=== PATIENT | male | born 1970 | race Caucasian/White ===

== ENCOUNTER → 2023-07-20 12:45 | Outpatient (BNVA) | payer OTHER, SELFPAY | PROVIDERS: Visit Provider Physician Assistant Medical | DX: M77.11 Lateral epicondylitis, right elbow (principal) | CPT/HCPCS: 99202 ==

== ENCOUNTER → 2023-07-27 12:54 | Outpatient (BNVA) | payer OTHER, SELFPAY | PROVIDERS: Visit Provider Physician Assistant Medical | DX: M77.11 Lateral epicondylitis, right elbow (principal) | CPT/HCPCS: 99213 ==

== ENCOUNTER → 2023-08-10 12:58 | Outpatient (BNVA) | payer OTHER, SELFPAY | PROVIDERS: Visit Provider Physician Assistant Medical | DX: M77.11 Lateral epicondylitis, right elbow (principal) | CPT/HCPCS: 99213 ==

== ENCOUNTER 2023-08-31 10:25 | Outpatient (AMB) | payer OTHER, SELFPAY ==
--- NOTE | 2023-08-31 10:31 | MHC.OFFVIS ---
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 Patient reports while at work, he was using a wrench when he felt a sharp pain in his elbow and has had soreness ever since. He was seen at work connection and was referred to orthopedics. Currently he has pain and difficulty with lifting objects. Painful ROM. Denies numbness or tingling. 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 He was seen at work connection where he was referred to our office. He currently states he has pain and constant soreness in his elbow which is aggravated with lifting objects, pulling in socks or trash cans and with ROM. He denies any numbness or tingling. He had undergone physical therapy about 10 years ago for a similar injury. 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 Review of Systems Const All systems reviewed & are unremarkable except as noted in HPI and below Physical Exam Vital Signs: BMI result Body Mass Index 25.8 Const General: cooperative, healthy appearing, comfortable, no acute distress, well developed and alert Orientation/consciousness: patient oriented x3 HEENT Head: Yes normal to inspection, Yes normocephalic and Yes atraumatic Eyes General: appearance normal, both eyes and all related structures Resp Effort & Inspection: normal respiratory effort and able to speak in complete sentences Cardio Rate: regular rate Peripheral pulses: Peripheral pulses 2+ throughout GI Palpation (GI): Soft to palpation Skin Lesions: no lesions Rashes: no rashes Neuro General: patient oriented x3 Extrem Other: Right elbow: Skin intact. No erythema or swelling. ROM full without pain. Tenderness over the lateral epicondyle and pain with resisted wrist extension. NVI. Results Reviewed Results Reviewed: xrays of the right elbow obtained on 07/27/23 ordered by the Work connection are negative for acute abnormalities. Assessment & Plan Assessment & Plan (1) Lateral epicondylitis, right elbow: Code(s): M77.11 - Lateral epicondylitis, right elbow Plan We discussed options which include PT, NSAIDs and injections. The patient will defer on the injection today and proceed with PT and NSAIDs. He was given a work note to return on 09/01/22. He will continue light duty restrictions with no lifting of the RUE. He will see me back in 6-8 weeks, sooner if needed. Orders: Orders OT Evaluation and Treatment Today M77.11 - Lateral epicondylitis, right elbow Patient Instructions: Scribed for Laurie Roberto PA-C, by Aneesh Mao medical biller, on 08/31/2023 at 10:30 AM EST. I, Laurie Roberto PA-C, have personally reviewed and agree with the information entered by the scribe. Coding Level of Care Code New Pt Level 3 (57500) Diagnoses Lateral epicondylitis, right elbow M77.11
[2023-08-31 10:33] VITALS: BMI 25.8
== END 2023-08-31 11:12 | disposition home or self-care (01) ==
LOC: HO.HOS 10:25
PROVIDERS: Visit Provider Physician Assistant
DX: M77.11 Lateral epicondylitis, right elbow (principal); Z04.2 Encounter for examination and observation following work accident
CPT/HCPCS: 99203

== ENCOUNTER → 2023-08-31 10:25 | Outpatient (BNVA) | payer OTHER, SELFPAY | PROVIDERS: Visit Provider Physician Assistant | DX: M77.11 Lateral epicondylitis, right elbow (principal) | CPT/HCPCS: 99202 ==

== ENCOUNTER 2023-10-19 13:55 | Outpatient (AMB) | payer OTHER, SELFPAY ==
[2023-10-19 14:06] VITALS: BMI 25.8
--- NOTE | 2023-10-19 14:06 | MHC.OFFVIS ---
Intake Vital Signs 10/19/23 14:06 Height 5 ft 10 in Weight 180 lb BMI 25.8 Intake Visit Reasons: OV-Rt elbow epicondylitis Intake Note: Yonny a 53 year old right hand dominant male presents today for a follow up of right elbow, DOI 07/20/23. Patient reports it is still a little sore. He states it has just started felling a little better. He is going to PT and states that it is going well and he continues to work with light duty restrictions. Allergies No Known Allergies Allergy (Verified 10/19/23 14:09) HPI OV-Rt elbow epicondylitis HPI Details 53-year-old right hand dominant male who returns to the office today for a follow-up of right elbow pain, 07/20/23. He states he has improvement in his pain however he continues to have mild soreness in his elbow with pulling up on objects. He is working on physical therapy with benefits. He continues to work with light duty restrictions. He has no concerns today. [facility] Social History Patient Tobacco Use Status: Never used Tobacco Current occupational status: employed Current occupation: [employer], right hand dominant Review of Systems Const All systems reviewed & are unremarkable except as noted in HPI and below Physical Exam Vital Signs: BMI result Body Mass Index 25.8 Const General: cooperative, healthy appearing, comfortable, no acute distress, well developed and alert Orientation/consciousness: patient oriented x3 HEENT Head: Yes normal to inspection, Yes normocephalic and Yes atraumatic Eyes General: appearance normal, both eyes and all related structures Resp Effort & Inspection: normal respiratory effort and able to speak in complete sentences Cardio Rate: regular rate Peripheral pulses: Peripheral pulses 2+ throughout GI Palpation (GI): Soft to palpation Skin Lesions: no lesions Rashes: no rashes Neuro General: patient oriented x3 Extrem Other: Right elbow: Skin intact. No erythema or swelling. ROM full without pain. Tenderness over the lateral epicondyle and mild pain with resisted wrist extension. Pain with resisted wrist supination. NVI. Assessment & Plan Assessment & Plan (1) Lateral epicondylitis, right elbow: Code(s): M77.11 - Lateral epicondylitis, right elbow Plan He will continue with occupational therapy to continue with iontophoresis as it has proven beneficial for him from this modality. He will continue with her current work restriction and I would like to see him back in 6 weeks for reevaluation, sooner if needed. Patient Instructions: Scribed for Laurie Roberto PA-C, by Aneesh Mao, director biomedical engineering, on 10/19/2023 at 2:15 PM EST. I, Laurie Roberto PA-C, have personally reviewed and agree with the information entered by the scribe. Coding Level of Care Code Est Pt Level 3 (17763) Diagnoses Lateral epicondylitis, right elbow M77.11
== END 2023-10-19 14:29 | disposition home or self-care (01) ==
PROVIDERS: Visit Provider Physician Assistant
DX: M77.11 Lateral epicondylitis, right elbow (principal)
CPT/HCPCS: 99213

== ENCOUNTER → 2023-10-19 13:55 | Outpatient (BNVA) | payer OTHER, SELFPAY | PROVIDERS: Visit Provider Physician Assistant | DX: M77.11 Lateral epicondylitis, right elbow (principal) | CPT/HCPCS: 99212 ==

== ENCOUNTER 2023-11-09 13:00 | Outpatient (RCR) | payer OTHER, SELFPAY ==
--- NOTE | 2023-09-15 09:22 | MHC.OT.OEV ---
[address] [phone] F: [phone] Occupational Therapy Evaluation Patient Name: Олег Blancas Diagnosis: (R) Lateral epicondylitis Date of Onset: Date of Surgery: Attending Provider: Laurie Roberto Prescribed Treatment: MD Follow Up Appointment: History of Current Condition: Patient is a 53 year old right handed male who was referred by DYLON Demarco for (R) lateral epicondylitis. 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 Lives with and children Enjoys [place] Living Situation, Family and/or Social Support: Current Level of Function and Occupation Self Care, Employment, Leisure: On light duty min (A)ADLs/IADLs Patient reports difficulty with activities such as lifting the trash out of the trash can Sleep: (I) Driving: (I) Vision: Balance: Pain Assessment Pain Score: Pain Scale Used: Numeric (0 - 10) Pain Location and Description: 6/10 with activity, 0/10 pain at rest Aggravating Factors: Movement, lifting, pushing Alleviating Factors: Ibprofen for awhile Skin and Soft Tissue Assessment Skin and Soft Tissue: Other Comments: WNL Nerve assessment Ulnar Nerve: Median Nerve: Radial Nerve: Right Impaired Comments: Mill's Test (+) Senior Cyber Intelligence Analyst strength with elbow extended (+) Cozen's Test (-) Sensory Assessment Temperature: WNL Light Touch: WNL Proprioception: WNL Vibration: WNL Comments: Edema Assessment Upper Extremity: Lower Extremity: Comments: mild edema present Dexterity Assessment Dexterity: B/L Impaired Comments: Functional Dexterity Test (R)30 seconds, (L) 31.03 normal= 27 seconds Special Tests Comments: AROM(PROM) Strength Cervical Cervical Flexion: Cervical Extension: Cervical Lateral Flexion: Cervical Rotation: Comments: Shoulder Flexion: Extension: Abduction: Internal Rotation: External Rotation: Comments: WFL Flexion: 4+/5 Extension:4+/5 Abduction: Internal Rotation: External Rotation: 4+/5 Comments: Elbow Flexion: Extension: Pronation: Supination: Comments: WFL Flexion: 3+/5 Extension: 3+/5 Pronation: Supination: Comments: Wrist Flexion: Extension: Ulnar Deviation: Radial Deviation: Comments: WFL Flexion: 3+/5 Extension: 3+/5 Ulnar Deviation: Radial Deviation: Comments: painful with resistance Thumb Thumb CMC Flexion: Thumb MCP Flexion: Thumb IP Flexion: Radial Abduction: Palmar Abduction: Princess Anne (Kapandji 0-10): Comments: WFL Digits Index MCP: PIP: DIP: Long MCP: PIP: DIP: Ring MCP: PIP: DIP: Small MCP: PIP: DIP: Comments: WFL Gross Grasp: (R)92.5, (L) 117.5 Lateral Pinch: 22 Two-Point Pinch: 11 Three-Jaw Prince: 15 Comments: (R) 92.5 (L)117.5 Patient Education Primary Language: Samoan Garageman Required: Current Knowledge: Teaching Method: Education Needs Identified on Evaluation: How did patient/family demonstrate learning? Barriers to Learning: Readiness for Learning: Who was educated? Comments: Plan of Care Assessment: Patient is a 53 y/o right handed male who presents today with pain on the lateral side of the epicondyle. Patient reports he was turning a wrench at work and felt a sharp pain like he was stuck with something in June. 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 He lives with and 2 children ages 16 and 13 in a 2 story home. He reports difficulty with activities such as pulling the trash out of trash can, lifting and pulling things. He denies numbness/tingling. He reports 6/10 during activity and 0/10 at rest. Mill's Test (+), work order clerk strength with elbow extension (+), Cozen's (-). Senior Cyber Intelligence Analyst strength (R)92.5lbs. and (L)117.5 lbs. Quick DASH= 38.6 indicating patient's perceived impairment on the UE. Based on initial evaluation patient's current level of function is min (A) self care tasks as patient presents with impaired strength, impaired functional activity tolerance as patient reports 6/10 pain with movement, and impaired performance during self care tasks. Due to the documented impairments it is recommended that patient receive skilled OT in order to achieve his PLOF of (I) and to return to work. Thank you for your referral. STG Duration: 2 weeks Short Term Goals: Patient will decrease pain to 4/10 pain when performing functional task Patient will improve work order clerk strength to 100lbs. LTG Duration: 4 weeks Business Office Technician Goals: Patient will be (I) with HEP Patient's work order clerk strength to 125lbs. Patient will report 0/10 pain while performing functional tasks Frequency and Duration: The patient will be seen 2 x a week for 4weeks Treatment Plan: Therapeutic Exercise Therapeutic Activity Home Exercise Program Splinting Patient Education Edema Control ADL Training Ultrasound Iontophoresis MHP Cold Packs Kinesiotaping OT eval and treat Electronically Signed By: LINNETTE Harkins/Ekaterina, CLT Reviewed/agree with student documentation: Therapist: Please sign and return to therapist, Thank you for your referral.
== END 2024-03-01 08:44 | disposition home or self-care (01) ==
LOC: HO.OT 13:00
PROVIDERS: Visit Provider Physician Assistant
DX: M77.11 Lateral epicondylitis, right elbow (principal)
CPT/HCPCS: 97033; 97035; 97110; 97165